=== PATIENT | male | born 1970 | race Caucasian/White ===

== ENCOUNTER 2022-12-28 14:46 | Outpatient (OUT) | payer MEDICAID, SELFPAY ==
[2022-12-28 15:13] LABS: Basophils Absolute Auto 0.1 10^3/uL (0.0-0.1); Basophils Percent Auto 0.5 % (0.2-2.0); Eosinophils Percent Auto 0.4 % (0.9-7.0); Hematocrit 47.8 % (42.0-54.0); Immature Granulocytes Abs Auto 0.03 10^3/uL (0.00-0.03); Immature Granulocytes Pct Auto 0.3 % (0.0-0.5); Lymphocytes Absolute Auto 1.8 10^3/uL (1.2-3.8); Lymphocytes Percent Auto 16.3 % (20.5-60.0); Mean Corpuscular HGB Conc 35.6 g/dL (29.9-35.2); Mean Corpuscular Volume 81.6 fL (80.0-94.0); Mean Platelet Volume 10.4 fL (9.5-13.5); Monocytes Absolute Auto 0.8 10^3/uL (0.3-0.8); Monocytes Percent Auto 7.5 % (1.7-12.0); Neutrophils Absolute Auto 8.3 10^3/uL (1.4-6.5); Platelet Count 253 10^3/uL (150-450); Red Blood Count 5.86 10^6/uL (4.70-6.10); Red Cell Distribution Width 12.1 % (11.0-15.0); White Blood Count 11.1 10^3/uL (4.0-11.0)
[2022-12-28 15:52] LABS: Anion Gap 14.5; BUN Creatinine Ratio 11.5; Calcium 9.1 mg/dL (8.5-10.1); Carbon Dioxide 26.4 mmol/L (21.0-32.0); Chloride 98 mmol/L (98-107); Estimated GFR (African America >60 (>=60); Estimated GFR (Non-African Ame >60 (>=60); Glucose 203 mg/dL (74-106); Potassium 3.9 mmol/L (3.5-5.1); Sodium 135 mmol/L (136-145); Thyroid Stimulating Hormone 4.651 uIU/mL (0.358-3.740)
== END 2022-12-28 14:47 ==
PROVIDERS: PCP Family Medicine; Visit Provider Family Medicine
DX: R63.1 Polydipsia (principal); R53.83 Other fatigue
CPT/HCPCS: 36415; 80048; 84443; 85025

== ENCOUNTER 2023-01-01 07:46 | Outpatient (OUT) | payer MEDICAID, SELFPAY ==
--- NOTE | 2023-01-01 | ECG_ITS ---
[facility] Test Date: 2023-01-01 Pat Name: MIRZA GARAY Department: Room: - Gender: Male Efficiency Analyst: : 1970 Requested By: KADEEM JACOBSON Order Number: [id number] Reading MD: FLAKITA JEFFERSON Measurements Intervals [place] Rate: 79 P: 49 WA: 156 QRS: 55 QRSD: 84 T: 38 QT: 363 QTc: 417 Interpretive Statements SINUS RHYTHM NONSPECIFIC T-WAVE ABNORMALITY No previous ECG available for comparison Electronically Signed On 01-01-2023 22:48:32 EDT by FLAKITA JEFFERSON
--- NOTE | 2023-01-01 11:28 | CA_ITS ---
Patient: MIRZA GARAY Exam Date: 01/01/2023 : 1970 Gender:M Ordering : DR Shanon Hernandez M.D. Admission #: [id number] Family : Order #: [id number] CLICK HERE TO VIEW EXAM ECHOCARDIOGRAM REPORT PROCEDURE: CA ECHO DOPPLER COMPLETE INDICATIONS: Dyspnea, left arm pain COMPARISON: None. DESCRIPTION: COMPLETE ECHOCARDIOGRAM Real-time transthoracic echocardiography with 2D, M-mode, spectral and color flow Doppler performed. QUALITY: Technical quality was good. LEFT VENTRICLE: Normal chamber size. Thickened septal wall. LV EF: Global left ventricular systolic function is normal. Calculated left ventricular ejection fraction is 68% DIASTOLIC: Normal diastolic function ATRIAL SEPTUM: Inadequately seen. LEFT ATRIUM: Normal chamber size. RIGHT ATRIUM: Normal chamber size. A prominent Eustachian valve (congenital remnant) is seen. RIGHT VENTRICLE: Normal chamber size. Normal right ventricular systolic function. TRICUSPID VALVE: Normal mobility and thickness. No stenosis with trivial regurgitation. No evidence of pulmonary hypertension. RVSP 22mmHg MITRAL VALVE: Normal mobility and thickness. No evidence of mitral valve stenosis. There is no mitral annular calcification. Trivial mitral regurgitation. AORTIC VALVE: Normal trileaflet appearance. No visible sclerosis. Normal leaflet mobility. No evidence of aortic valve stenosis. No aortic regurgitation. AORTIC ROOT: Normal diameter and appearance. PULMONIC VALVE: Normal thickness and mobility. No stenosis. No regurgitation. PERICARDIUM: No evidence of pericardial effusion. IVC: Collapses with inspirations. Normal size. CONCLUSION: Global left ventricular systolic function is normal; visually estimated ejection fraction is 60 to 65%. Normal diastolic function. The right ventricle is normal in size and systolic function. No significant valvular abnormalities. Adult Echocardiography Procedure Report Left Ventricle LVEDD (3.7 - 5.6 cm): 3.85 cm LVESD (2.2 - 4.0 cm): 2.71 cm LVIVS thickness (0.6 - 1.2 cm): 1.42 cm LVPW thickness (0.5 - 1.0 cm): 1.03 cm e': 0.13 m/s E - e': 5.93 LVOT Max Gradient: 4.38 mm[Hg] LVOT Area (cm2): 1.05 m/s Peak Velocity (LVOT): 1.05 m/s Mean Velocity (LVOT): 0.71 m/s LVOT Diameter 2.10 cm Left Ventricular Ejection Fraction: 68.32 % Left Atrium LA Volume Index (2D A2C): 17.89 ml/m2 Left Atrium Systolic Dimension: 2.94 cm Mitral Valve MV E to A Ratio: 0.91, 0.94 Mitral Valve A-Wave Peak Velocity: 0.86 m/s Mitral Valve E-Wave Peak Velocity: 0.79 m/s Right Ventricle RV Internal Diastolic Dimension: 3.57 cm Aorta AO Root Diam: 3.30 cm Ascending Ao Diam: 3.04 cm Aortic Valve AoV Area (Peak Jed): 2.52 cm2, 2.52 cm2 AoV Area (VTI): 2.38 cm2, 2.38 cm2 Peak Velocity(Antegrade Flow): 1.43 m/s Peak Gradient(Antegrade Flow): 8.22 mm[Hg] Mean Velocity(Antegrade Flow): 1.01 m/s Mean Gradient(Antegrade Flow): 4.61 mm[Hg] Velocity Time Integral: 29.05 cm Tricuspid Valve Peak Velocity (Regurgitant Flow): 1.61 m/s, 2.19 m/s Pulmonic Valve Mean Gradient: 3.08 mm[Hg], 2.86 mm[Hg], 3.55 mm[Hg] Mean Velocity: 0.83 m/s, 0.79 m/s, 0.88 m/s Peak Velocity: 1.17 m/s Peak Gradient: 5.58 mm[Hg], 4.73 mm[Hg], 6.20 mm[Hg] Right Atrium Right Atrium Systolic Pressure: 37.00 ml, 37.00 ml Dictated by: David Smallwood M.D. on 01/03/2023 at 15:58 Approved by: David Smallwood M.D. on 01/03/2023 at 16:01
== END 2023-01-01 07:47 ==
LOC: CARD 07:46
PROVIDERS: PCP Family Medicine; Visit Provider Family Medicine
DX: R06.09 Other forms of dyspnea (principal); M79.602 Pain in left arm
CPT/HCPCS: 93005; 93306

== ENCOUNTER 2023-05-19 09:17 | Outpatient (OUT) | payer OTHER, SELFPAY ==
[2023-05-19 09:38] LABS: Estimated Average Glucose 174 mg/dL; Glycohemoglobin A1C 7.7 % (4.5-6.2)
[2023-05-19 10:13] LABS: Free T4 1.43 ng/dL (0.76-1.46)
[2023-05-19 10:18] LABS: Anion Gap 10.9; BUN Creatinine Ratio 13.8; Calcium 9.4 mg/dL (8.5-10.1); Carbon Dioxide 29.2 mmol/L (21.0-32.0); Chloride 96 mmol/L (98-107); Estimated GFR (African America >60 (>=60); Estimated GFR (Non-African Ame >60 (>=60); Glucose 170 mg/dL (74-106); Potassium 4.1 mmol/L (3.5-5.1); Sodium 132 mmol/L (136-145); Thyroid Stimulating Hormone 0.342 uIU/mL (0.358-3.740)
== END 2023-05-19 09:18 | disposition home or self-care (01) ==
LOC: LAB 09:17
PROVIDERS: PCP Family Medicine; Visit Provider Family Medicine
DX: E11.65 Type 2 diabetes mellitus with hyperglycemia (principal); I10 Essential (primary) hypertension; E03.8 Other specified hypothyroidism
CPT/HCPCS: 36415; 80048; 83036; 84439; 84443

== ENCOUNTER 2023-06-13 13:58 | Outpatient (OUT) | payer OTHER, SELFPAY | END 2023-06-13 13:59 | disposition home or self-care (01) | LOC: DE 13:59 | PROVIDERS: PCP Family Medicine; Visit Provider Family Medicine | DX: E11.8 Type 2 diabetes mellitus with unspecified complications (principal) | CPT/HCPCS: G0108 ==